=== PATIENT | female | born 1975 | race Two or more races ===

== ENCOUNTER 2022-07-31 09:26 | Outpatient (CLI) | payer OTHER ==
[~2022-07-31 09:26] MED LIST: AMOX1TAB12 PO; ATENOLOL25 MG PO; COZAAR50 MG; DICLOFENAC SODI50 MG PO
== END 2022-07-31 09:34 | disposition home or self-care (01) ==
LOC: LAB 09:26
PROVIDERS: ATTEND Internal Medicine
DX: I10 Essential (primary) hypertension (principal); M54.50 Low back pain, unspecified; Z01.810 Encounter for preprocedural cardiovascular examination; E03.9 Hypothyroidism, unspecified; E78.9 Disorder of lipoprotein metabolism, unspecified; E55.9 Vitamin D deficiency, unspecified; E11.51 Type 2 diabetes mellitus with diabetic peripheral angiopathy without gangrene; E11.9 Type 2 diabetes mellitus without complications; E66.8 Other obesity; G62.9 Polyneuropathy, unspecified; Z12.11 Encounter for screening for malignant neoplasm of colon; Z12.31 Encounter for screening mammogram for malignant neoplasm of breast; Z13.820 Encounter for screening for osteoporosis